=== PATIENT | female | born 1935 | race Caucasian/White ===

== ENCOUNTER 2020-09-04 23:32 | Emergency (ER) | payer MEDICARE, OTHER ==
[2020-09-05] MEDS ORDERED: Sodium Chloride 0.9% 1,000 ML IV ONE (00:52)
--- NOTE | 2020-09-05 01:04 | EDM.PDOC ---
ED HPI GENERAL MEDICAL PROBLEM - General Chief Complaint: Fever Stated Complaint: FEVER, DEHYDRATED, VOMITING, FEELING SINCE TUESDAY Time Seen by Provider: 09/05/20 00:20 Source of Information: Reports: Patient, Family (daughter) History Limitations: Reports: No Limitations - History of Present Illness INITIAL COMMENTS - FREE TEXT/NARRATIVE: This 84 yo female patient was brought to the ED by her daughter due to a 1 week history of increased weakness, fevers and lack of appetite/thirst. The patient was seen in the [facility] on Tuesday (09/03/20). The patient reports she had lab work, a urinalysis and chest x-ray during the clinic visit with no reason for her current feeling. The patient reports she was advised to come to the ED if she was not feeling better. The patient's daughter from [place] came to visit [facility] and encouraged her to come in. The patient reports diffuse abdominal aches, but no areas of specific pain. Duration: Week(s):, Constant, Getting Worse Location: Reports: Generalized Quality: Reports: Other Severity: Moderate Improves with: Reports: None Worsens with: Reports: None Associated Symptoms: Reports: Fever/Chills, Loss of Appetite, Malaise - Related Data Allergies Allergy/AdvReac Type Severity Reaction Status Date / Time adhesive tape Allergy Rash Verified 12/05/17 09:30 levofloxacin [From Levaquin] Allergy Hives Verified 01/29/19 08:57 Sulfa (Sulfonamide Allergy Itching Verified 12/05/17 09:30 Antibiotics) tapentadol Allergy Nausea and Verified 01/29/19 08:57 Vomiting Home Meds: Home Meds atenoloL [Atenolol] 25 mg PO DAILY 12/05/17 [History] Past Medical History HEENT History: Reports: Impaired Vision, Other (See Below) Other HEENT History: WEARS HEARING AIDES Cardiovascular History: Reports: Other (See Below) Other Cardiovascular History: IRREGULAR HR Respiratory History: Reports: None Gastrointestinal History: Reports: None Genitourinary History: Reports: None [employer] History: Reports: Musculoskeletal History: Reports: Back Pain, Chronic, Other (See Below) Other Musculoskeletal History: LOWER BACK DISK ISSUES ON OCCASSION Neurological History: Reports: None Psychiatric History: Reports: None Endocrine/Metabolic History: Reports: None Hematologic History: Reports: None Immunologic History: Reports: None Oncologic (Cancer) History: Reports: None Dermatologic History: Reports: None - Infectious Disease History Infectious Disease History: Reports: Chicken Pox, Measles, Mumps, Shingles - Past Surgical History Head Surgeries/Procedures: Reports: None HEENT Surgical History: Reports: Adenoidectomy, Tonsillectomy, Other (See Below) Other HEENT Surgeries/Procedures: RIGHT EAR SURGERY TO PATCH HOLE IN EARDRUM Cardiovascular Surgical History: Reports: None GI Surgical History: Reports: Colonoscopy Female Surgical History: Reports: D&C Endocrine Surgical History: Reports: None Neurological Surgical History: Reports: None Musculoskeletal Surgical History: Reports: None Social & Family History - Family History Family Medical History: No Pertinent Family History - Tobacco Use Tobacco Use Status *Q: Never Tobacco User - Caffeine Use Caffeine Use: Reports: None ED ROS GENERAL - Review of Systems Review Of Systems: Comprehensive ROS is negative, except as noted in HPI. ED EXAM, GENERAL - Physical Exam Exam: See Below Exam Limited By: No Limitations General Appearance: Alert, WD/WN, Moderate Distress, Thin Eye Exam: Bilateral Eye: EOMI, Normal Inspection, PERRL Ears: Normal External Exam, Normal Canal, Hearing Grossly Normal, Normal TMs Nose: Normal Inspection, Normal Mucosa, No Blood Throat/Mouth: Normal Inspection, Normal Lips, Normal Teeth, Normal Gums, Normal Oropharynx, Normal Voice, No Airway Compromise Head: Atraumatic, Normocephalic Neck: Normal Inspection, Supple, Non-Tender, Full Range of Motion Respiratory/Chest: No Respiratory Distress, Lungs Clear, Normal Breath Sounds, No Accessory Muscle Use, Chest Non-Tender Cardiovascular: Normal Peripheral Pulses, Regular Rate, Rhythm, No Edema, No Gallop, No JVD, No Murmur, No Rub GI/Abdominal: Normal Bowel Sounds, No Organomegaly, No Distention, No Abnormal Bruit, No Mass, Pelvis Stable, Tender (LLQ to paplation) (Female) Exam: Deferred Rectal (Female) Exam: Deferred Back Exam: Normal Inspection, Full Range of Motion, NT Extremities: Normal Inspection, Normal Range of Motion, Non-Tender, Normal Capillary Refill, No Pedal Edema Neurological: Alert, Oriented, CN II-XII Intact, Normal Cognition, Normal Gait, Normal Reflexes, No Motor/Sensory Deficits Psychiatric: Normal Affect, Normal Mood Skin Exam: Warm, Dry, Intact, Normal Color, No Rash Lymphatic: No Adenopathy Course - Vital Signs Last Recorded V/S: Last Vital Signs Temp 98.6 F 09/04/20 23:46 Pulse 74 09/04/20 23:46 Resp 18 09/04/20 23:46 BP 120/66 09/04/20 23:46 Pulse Ox - Orders/Labs/Meds Orders: Active Orders 24 hr Category Date Time Status EKG Documentation Completion [RC] STAT Care 09/05/20 00:49 Active CULTURE URINE [RM] Urgent Lab 09/05/20 02:06 Received LYME DISEASE AB TOTAL IG EIA [REF] Urgent Lab 09/05/20 00:49 Received [facility] [REF] Urgent Lab 09/05/20 00:49 Received Ondansetron [Zofran] Med 09/05/20 03:14 Once 4 mg IVPUSH ONETIME ONE Labs: Laboratory Tests 09/05/20 09/05/20 09/05/20 Range/Units 00:49 00:49 02:06 WBC 8.1 (5.0-10.0) 10^3/uL RBC 4.00 L (4.2-5.4) 10^6/uL Hgb 13.1 (12.0-16.0) g/dL Hct 37.8 (37.0-47.0) % MCV 94.5 (80-100) fL MCH 32.8 (27.0-34.0) pg MCHC 34.7 (33.0-35.0) g/dL Plt Count 196 (150-450) 10^3/uL Neut % (Auto) 77.2 H (42.2-75.2) % Lymph % (Auto) 10.3 L (20.5-50.1) % [place] % (Auto) 11.0 H (2-8) % Eos % (Auto) 1.1 (1.0-3.0) % Baso % (Auto) 0.4 (0.0-1.0) % Sodium 136 (136-145) mmol/L Potassium 3.5 (3.5-5.1) mmol/L Chloride 98 (98-107) mmol/L Carbon Dioxide 26 (21-32) mmol/L Anion Gap 15.5 H (7-13) mEq/L BUN 8 (7-18) mg/dL Creatinine 0.53 L (0.55-1.02) mg/dL Est Cr Clr Drug Dosing TNP Estimated GFR (MDRD) > 60 BUN/Creatinine Ratio 15.1 (No establ ref range) Glucose 113 H (70-99) mg/dL Calcium 8.4 L (8.5-10.1) mg/dL Magnesium 1.8 (1.8-2.4) mg/dL Total Bilirubin 0.3 (0.2-1.0) mg/dL AST 22 (15-37) U/L ALT 23 (14-59) U/L Alkaline Phosphatase 67 (46-116) U/L Troponin I High Sens 6 (<=51) pg/mL Total Protein 6.3 L (6.4-8.2) g/dL Albumin 2.6 L (3.4-5.0) g/dL Globulin 3.7 Albumin/Globulin Ratio 0.70 Urine Color Yellow (YELLOW) Urine Appearance Clear (CLEAR) Urine pH 6.0 (5.0-9.0) Ur Specific [place] 1.010 (1.005-1.030) Urine Protein Negative (NEGATIVE) Urine Glucose (UA) Negative (NEGATIVE) Urine Ketones 15 H (NEGATIVE) Urine Occult Blood Negative (NEGATIVE) Urine Nitrite Negative (NEGATIVE) Urine Bilirubin Negative (NEGATIVE) Urine Urobilinogen 0.2 (0.2-1.0) mg/dL Ur Leukocyte Esterase Trace H (NEGATIVE) Urine RBC 0-5 /HPF Urine WBC 0-5 (0-5/HPF) /HPF Ur Epithelial Cells Rare (NOT SEEN) /HPF Amorphous Sediment Rare (NOT SEEN) /HPF Urine Bacteria Rare (0-FEW/HPF) /HPF Urine Mucus Not seen (NOT SEEN) /LPF Meds: Medications Discontinued Medications Generic Name Dose Route Start Last Admin Trade Name Freq PRN Reason Stop Dose Admin Sodium Chloride 1,000 mls @ 999 mls/hr 09/05/20 00:52 09/05/20 00:55 Normal Saline IV 09/05/20 01:52 999 mls/hr .BOLUS ONE Administration - Re-Assessments/Exams Free Text/Narrative Re-Assessment/Exam: 09/05/20 03:14 The patient reports some additional nausea. The patient was advised of the remainder or her labs. Departure - Departure Time of Disposition: 03:15 Disposition: Home, Self-Care 01 Condition: Fair Clinical Impression: Gastroenteritis, Dehydration - Discharge Information *PRESCRIPTION DRUG MONITORING PROGRAM REVIEWED*: Not Applicable *COPY OF PRESCRIPTION DRUG MONITORING REPORT IN PATIENT [place]: Not Applicable Instructions: Dehydration, Adult, [id number] Forms: ED Department Discharge Care Plan Goals: The patient was advised of the examination and lab results during the visit. The patient was given IV fluids and IV Zofran during the visit. The patient was discharged with a script for Zofran (4 mg) #20 to take 1 by mouth every 6 hours as needed for nausea. The patient was encouraged to attempt to eat healthy meals. The patient will be called with the remaining lab results (West Nile and Lyme Disease) when the results are available. If the patient has any additional symptoms or concerns, the patient should either return to the emergency department or visit her primary care facility. Sepsis Event Note (ED) - Evaluation Sepsis Screening Result: No Definite Risk - Focused Exam Vital Signs: Vital Signs Temp Pulse Resp BP 09/04/20 23:46 98.6 F 74 18 120/66 - My Orders Last 24 Hours: My Active Orders 09/05/20 00:49 EKG Documentation Completion [RC] STAT LYME DISEASE AB TOTAL IG EIA [REF] Urgent [facility] [REF] Urgent 09/05/20 02:06 CULTURE URINE [RM] Urgent 09/05/20 03:14 Ondansetron [Zofran] 4 mg IVPUSH ONETIME ONE - Assessment/Plan Last 24 Hours: My Active Orders 09/05/20 00:49 EKG Documentation Completion [RC] STAT LYME DISEASE AB TOTAL IG EIA [REF] Urgent [facility] [REF] Urgent 09/05/20 02:06 CULTURE URINE [RM] Urgent 09/05/20 03:14 Ondansetron [Zofran] 4 mg IVPUSH ONETIME ONE
[2020-09-05 01:19] LABS: ANION GAP 15.5 mEq/L (7-13); CHLORIDE,CL 98 mmol/L (98-107); SODIUM,NA 136 mmol/L (136-145)
[2020-09-05] MEDS ORDERED: Ondansetron 4 MG/2 ML SDV IVPUSH ONE (03:14)
== END 2020-09-05 03:30 | disposition home or self-care (01) ==
LOC: DL.ED 23:32
DX: K52.9 Noninfective gastroenteritis and colitis, unspecified (principal); E86.0 Dehydration; Z88.1 Allergy status to other antibiotic agents; Z91.048 Other nonmedicinal substance allergy status; Z88.2 Allergy status to sulfonamides; Z88.5 Allergy status to narcotic agent
CPT/HCPCS: 36415; 80053; 81001; 83735; 84484; 85025; 86618; 86788; 87086; 93005; 96374; 99283; 99285; J2405; J7030

== ENCOUNTER 2020-09-06 14:07 | Emergency (ER) | payer MEDICARE, OTHER | END 2020-09-06 14:55 | disposition left against medical advice (07) | LOC: DL.ED 14:07 | DX: Z53.21 Procedure and treatment not carried out due to patient leaving prior to being seen by health care provider (principal) ==

== ENCOUNTER 2022-12-04 04:59 | Emergency (ER) | payer MEDICARE, OTHER | END 2022-12-04 06:49 | disposition home or self-care (01) | LOC: DL.ED 04:59 | DX: I16.0 Hypertensive urgency (principal); Z88.1 Allergy status to other antibiotic agents; Z88.2 Allergy status to sulfonamides; Z88.8 Allergy status to other drugs, medicaments and biological substances; Z91.048 Other nonmedicinal substance allergy status | CPT/HCPCS: 93010; 99284 ==

== ENCOUNTER 2023-06-18 19:55 | Observation (INO) | payer MEDICARE, OTHER ==
[2023-06-18] MEDS: Ibuprofen 600 MG Tab PO ONE (21:03)
[2023-06-18] MEDS: Albuterol/Ipratropium 3.0-0.5 MG/3 ML Neb Soln NEB ONE (21:03)
[2023-06-18 21:05] LABS: BASOPHILS PERCENT AUTO 0.2 % (0.0-1.0); EOSINOPHILS PERCENT AUTO 0.5 % (1.0-3.0); HEMATOCRIT 33.5 % (37.0-47.0); HEMOGLOBIN 11.2 g/dL (12.0-16.0); LYMPHOCYTES PERCENT AUTO 11.5 % (20.5-50.1); MEAN CORPUSCULAR HEMOGLOBIN 31.9 pg (27.0-34.0); MEAN CORPUSCULAR HGB CONC 33.4 g/dL (33.0-35.0); MEAN CORPUSCULAR VOLUME 95.4 fL (80-100); MONOCYTES PERCENT AUTO 7.9 % (2-8); NEUTROPHILS PERCENT AUTO 79.9 % (42.2-75.2); PLATELET COUNT,PLT 235 10^3/uL (150-450); RED BLOOD CELL COUNT 3.51 10^6/uL (4.2-5.4); WHITE BLOOD CELL COUNT,WBC 9.9 10^3/uL (5.0-10.0)
[2023-06-18 21:30] LABS: ALBUMIN 2.7 g/dL (3.4-5.0); ANION GAP 14.1 mEq/L (7-13); BILIRUBIN TOTAL 0.3 mg/dL (0.2-1.0); BUN/CREATININE RATIO 13.2 (No establ ref range); CALCIUM 8.5 mg/dL (8.5-10.1); CREATININE 0.91 mg/dL (0.55-1.02); EST CRCL DRUG DOSING (CG) 40.65 mL/min; LACTIC ACID 0.8 mmol/L (0.4-2.0); MAGNESIUM 1.7 mg/dL (1.8-2.4); POTASSIUM,K 4.1 mmol/L (3.5-5.1); PROTEIN TOTAL,TP 6.8 g/dL (6.4-8.2)
[2023-06-18 21:33] LABS: A/G RATIO 0.66
[2023-06-18 22:01] LABS: APPEARANCE,URINE CLEAR (CLEAR); BILIRUBIN,URINE NEGATIVE (NEGATIVE); COLOR,URINE YELLOW (YELLOW); GLUCOSE,URINE NEGATIVE (NEGATIVE); KETONES,URINE NEGATIVE (NEGATIVE); LEUKOCYTE ESTERASE,URINE NEGATIVE (NEGATIVE); NITRITE,URINE NEGATIVE (NEGATIVE); OCCULT BLOOD,URINE NEGATIVE (NEGATIVE); PH,URINE 7.5 (5.0-9.0); PROTEIN,URINE NEGATIVE (NEGATIVE); UROBILINOGEN,URINE 0.2 mg/dL (0.2-1.0)
[2023-06-18 22:06] LABS: CORONAVIRUS COVID-19 NAA NEGATIVE (NEGATIVE); INFLUENZA A NAA NEGATIVE (NEGATIVE); INFLUENZA B NAA NEGATIVE (NEGATIVE); RESPIRATORY SYNCYTIAL VIR NAA NEGATIVE (NEGATIVE)
[2023-06-18] MEDS: Magnesium Sulfate/Water 2 GM in Premix Bag 1 BAG IV ONE (23:09)
[2023-06-18] MEDS: cefTRIAXone 1 GM Vial IVPUSH ONE (23:09)
[2023-06-18] MEDS: Sodium Chloride 0.9% 1,000 ML IV ONE (23:09)
[2023-06-18] MEDS ORDERED: Docusate Sodium 100 MG Cap PO PRN (23:58)
[2023-06-18] MEDS ORDERED: Acetaminophen/HYDROcodone 325-5 MG Tab PO PRN (23:58)
[2023-06-18] MEDS ORDERED: Acetaminophen 325 MG Tab PO PRN (23:58)
[2023-06-18] MEDS ORDERED: Ondansetron 4 MG/2 ML SDV IVPUSH PRN (23:58)
[2023-06-18] MEDS ORDERED: Bisacodyl 5 MG Tab PO PRN (23:58)
[2023-06-18] MEDS ORDERED: Albuterol/Ipratropium 3.0-0.5 MG/3 ML Neb Soln NEB PRN (23:58)
[2023-06-19] MEDS ORDERED: Melatonin 3 MG Tab PO PRN (00:05)
[2023-06-19] MEDS ORDERED: guaiFENesin/Dextromethorphan 100-10 MG/5 ML Soln 5 ML Cup PO PRN (00:05)
[2023-06-19] MEDS: Azithromycin 500 MG in Sodium Chloride 0.9% 250 ML IV ONE (00:30)
[2023-06-19 06:35] LABS: BASOPHILS PERCENT AUTO 0.2 % (0.0-1.0); EOSINOPHILS PERCENT AUTO 1.4 % (1.0-3.0); HEMATOCRIT 32.6 % (37.0-47.0); HEMOGLOBIN 10.8 g/dL (12.0-16.0); LYMPHOCYTES PERCENT AUTO 17.7 % (20.5-50.1); MEAN CORPUSCULAR HEMOGLOBIN 31.8 pg (27.0-34.0); MEAN CORPUSCULAR HGB CONC 33.1 g/dL (33.0-35.0); MEAN CORPUSCULAR VOLUME 95.9 fL (80-100); MONOCYTES PERCENT AUTO 10.4 % (2-8); NEUTROPHILS PERCENT AUTO 70.3 % (42.2-75.2); PLATELET COUNT,PLT 224 10^3/uL (150-450); WHITE BLOOD CELL COUNT,WBC 8.4 10^3/uL (5.0-10.0)
[2023-06-19 07:34] LABS: ANION GAP 10.2 mEq/L (7-13); CALCIUM 8.1 mg/dL (8.5-10.1); CREATININE 0.68 mg/dL (0.55-1.02); EST CRCL DRUG DOSING (CG) 52.49 mL/min; POTASSIUM,K 4.2 mmol/L (3.5-5.1)
[2023-06-19] MEDS ORDERED: Albuterol 6.7 GM Inhaler INH PRN (08:04)
[2023-06-19] MEDS: Enoxaparin 40 MG/0.4 ML Syringe SUBCUT SCH (08:44)
[2023-06-19] MEDS: Atenolol 25 MG Tab PO SCH (08:44)
[2023-06-19] MEDS ORDERED: cefTRIAXone 1 GM Vial IVPUSH SCH (22:00)
[2023-06-20] MEDS ORDERED: Azithromycin 250 MG Tab PO SCH (07:00)
[2023-06-20] MEDS ORDERED: Azithromycin 250 MG Tab PO ONE (07:00)
== END 2023-06-19 09:41 | disposition home or self-care (01) ==
LOC: DL.ED 19:55 → DL.MS 22:15 → DL.ED 23:39
PROVIDERS: ADMIT Internal Medicine; ATTEND Internal Medicine
DX: J18.9 Pneumonia, unspecified organism (principal); I10 Essential (primary) hypertension; Z79.899 Other long term (current) drug therapy; Z88.2 Allergy status to sulfonamides; Z91.048 Other nonmedicinal substance allergy status
CPT/HCPCS: 0241U; 36415; 71045; 80048; 80053; 81003; 83605; 83735; 84484; 85025; 87040; 93005; 93010; 96365; 96366; 96367; 96375; 99222; 99239; 99284; 99285; A9270; G0378; J0456; J0696; J3475; J7030; J7050; J7620-GY

== ENCOUNTER 2023-10-21 09:10 | Emergency (ER) | payer MEDICARE, OTHER ==
[2023-10-21 09:46] LABS: BASOPHILS PERCENT AUTO 0.2 % (0.0-1.0); HEMOGLOBIN 12.7 g/dL (12.0-16.0); LYMPHOCYTES PERCENT AUTO 13.9 % (20.5-50.1); MEAN CORPUSCULAR HEMOGLOBIN 32.5 pg (27.0-34.0); MEAN CORPUSCULAR HGB CONC 34.3 g/dL (33.0-35.0); MEAN CORPUSCULAR VOLUME 94.6 fL (80-100); MONOCYTES PERCENT AUTO 12.7 % (2-8); NEUTROPHILS PERCENT AUTO 73.2 % (42.2-75.2); PLATELET COUNT,PLT 175 10^3/uL (150-450); RED BLOOD CELL COUNT 3.91 10^6/uL (4.2-5.4); WHITE BLOOD CELL COUNT,WBC 5.8 10^3/uL (5.0-10.0)
[2023-10-21 10:02] LABS: PROTHROMBIN TIME 10.4 SEC (9.0-12.0)
[2023-10-21] MEDS: Sodium Chloride 0.9% 500 ML IV ONE (10:06)
[2023-10-21 10:08] LABS: A/G RATIO 0.79; ANION GAP 12.8 mEq/L (7-13); BILIRUBIN TOTAL 0.4 mg/dL (0.2-1.0); BUN/CREATININE RATIO 13.3 (No establ ref range); CALCIUM 8.7 mg/dL (8.5-10.1); CREATININE 0.75 mg/dL (0.55-1.02); EST CRCL DRUG DOSING (CG) 48.3 mL/min; MAGNESIUM 1.6 mg/dL (1.8-2.4); POTASSIUM,K 3.8 mmol/L (3.5-5.1); PROTEIN TOTAL,TP 6.8 g/dL (6.4-8.2)
[2023-10-21] MEDS: Iopamidol 612 MG/ML 100 ML Bottle IVPUSH ONE (10:36)
[2023-10-21] MEDS: Magnesium Sulfate/Water 2 GM in Premix Bag 1 BAG IV ONE (10:49)
== END 2023-10-21 14:29 | disposition home or self-care (01) ==
LOC: DL.ED 09:10
DX: U07.1 COVID-19 (principal); E83.42 Hypomagnesemia; I10 Essential (primary) hypertension; Z86.16 Personal history of COVID-19; Z88.2 Allergy status to sulfonamides; Z88.1 Allergy status to other antibiotic agents; Z91.048 Other nonmedicinal substance allergy status
CPT/HCPCS: 36415; 71260; 80053; 83690; 83735; 84484; 85025; 85610; 87804; 93005; 93010; 96361; 96365; 96366; 99284; 99284-25; J3475; J7040; Q9967; U0002

== ENCOUNTER 2023-10-24 09:26 | Inpatient (IN) | payer MEDICARE, OTHER ==
[2023-10-24 09:59] LABS: HEMOGLOBIN 15.1 g/dL (12.0-16.0); MEAN CORPUSCULAR HEMOGLOBIN 32.3 pg (27.0-34.0); MEAN CORPUSCULAR HGB CONC 34.3 g/dL (33.0-35.0); MEAN CORPUSCULAR VOLUME 94.2 fL (80-100); PLATELET COUNT,PLT 239 10^3/uL (150-450); RED BLOOD CELL COUNT 4.67 10^6/uL (4.2-5.4); WHITE BLOOD CELL COUNT,WBC 4.2 10^3/uL (5.0-10.0)
[2023-10-24 10:02] LABS: BASOPHILS PERCENT AUTO 0.2 % (0.0-1.0); EOSINOPHILS PERCENT AUTO 0.2 % (1.0-3.0); LYMPHOCYTES PERCENT AUTO 43.9 % (20.5-50.1); MONOCYTES PERCENT AUTO 11.2 % (2-8); NEUTROPHILS PERCENT AUTO 44.5 % (42.2-75.2)
[2023-10-24 10:14] LABS: INR 0.9 (0.9-1.2); PROTHROMBIN TIME 9.7 SEC (9.0-12.0)
[2023-10-24 10:19] LABS: ALANINE AMINOTRANSFERASE,ALT 20 U/L (14-59); ALKALINE PHOSPHATASE 59 U/L (46-116); ANION GAP 13.4 mEq/L (7-13); ASPARTATE AMNIOTRANSFERASE,AST 16 U/L (15-37); BILIRUBIN TOTAL 0.4 mg/dL (0.2-1.0); BLOOD UREA NITROGEN,BUN 5 mg/dL (7-18); CARBON DIOXIDE,CO2 28 mmol/L (21-32); CHLORIDE,CL 102 mmol/L (98-107); GLUCOSE RANDOM 114 mg/dL (70-99); MAGNESIUM 1.7 mg/dL (1.8-2.4); POTASSIUM,K 3.4 mmol/L (3.5-5.1); PROTEIN TOTAL,TP 7.4 g/dL (6.4-8.2); SODIUM,NA 140 mmol/L (136-145)
[2023-10-24 10:22] LABS: A/G RATIO 0.68; BUN/CREATININE RATIO 6.3 (No establ ref range); ESTIMATED GFR 72 mL/min (>=60)
[2023-10-24] MEDS: Sodium Chloride 0.9% 500 ML IV ONE (10:30)
[2023-10-24 10:50] LABS: LYMPHOCYTES % ATYPICAL MANUAL 6 %; LYMPHOCYTES PERCENT MAN 37 % (20-50); MONOCYTES PERCENT MAN 12 % (2-8); SEG NEUTROPHILS PERCENT MAN 45 % (42-75)
[2023-10-24] MEDS: Magnesium Sulfate/Water Premix 2 GM in Premix Bag 1 BAG IV ONE (11:03)
[2023-10-24] MEDS: hydrALAZINE 20 MG/ML SDV IVPUSH ONE (11:14)
[2023-10-24] MEDS ORDERED: Metoprolol Tartrate 5 MG/5 ML SDV IVPUSH PRN (12:50)
[2023-10-24] MEDS ORDERED: hydrALAZINE 20 MG/ML SDV IVPUSH PRN (12:50)
[2023-10-24] MEDS ORDERED: HYDROmorphone 0.5 MG/0.5 ML Syringe IVPUSH PRN (12:51)
[2023-10-24] MEDS ORDERED: Magnesium Hydroxide 400 MG/5 ML Susp 30 ML Cup PO PRN (12:51)
[2023-10-24] MEDS ORDERED: Polyethylene Glycol 3350 Powder 17 GM Packet PO PRN (12:51)
[2023-10-24] MEDS ORDERED: Sennosides/Docusate Sodium 50-8.6 MG Tab PO PRN (12:51)
[2023-10-24] MEDS ORDERED: Naloxone 2 MG/2 ML Syringe IVPUSH PRN (12:51)
[2023-10-24] MEDS ORDERED: Albuterol/Ipratropium 3.0-0.5 MG/3 ML Neb Soln NEB PRN (12:51)
[2023-10-24] MEDS ORDERED: 50% Dextrose in Water 50 ML Syringe IVPUSH PRN (12:54)
[2023-10-24] MEDS ORDERED: Glucagon,Human Recombinant 1 MG Vial IM PRN (12:54)
[2023-10-24] MEDS ORDERED: traMADol 50 MG Tab PO PRN (12:54)
[2023-10-24] MEDS ORDERED: Sodium Chloride 0.9% 100 ML IV PRN (13:21)
[2023-10-24 13:37] LABS: T4 FREE 1.24 ng/dL (0.76-1.46); TSH ULTRASENSITIVE 1.98 uIU/mL (0.36-3.74)
[2023-10-24] MEDS: Potassium Chloride 10 MEQ Tab.ER PO ONE (14:06)
[2023-10-24] MEDS: REMDESIVIR 200 MG in Sodium Chloride 0.9% 250 ML IV ONE (14:06)
[2023-10-24] MEDS: cefTRIAXone 1 GM Vial IVPUSH ONE (14:07)
[2023-10-24] MEDS: Azithromycin 500 MG in Sodium Chloride 0.9% 250 ML IV ONE (16:37)
[2023-10-24] MEDS: Insulin Lispro 100 Units/ML 3 ML Vial SUBCUT SCH (17:46)
[2023-10-25] MEDS: Ondansetron 4 MG/2 ML SDV IVPUSH PRN (00:24)
[2023-10-25] MEDS: Metoclopramide 10 MG/2 ML SDV IV PRN (04:38)
[2023-10-25 06:43] LABS: BASOPHILS PERCENT AUTO 0.4 % (0.0-1.0); EOSINOPHILS PERCENT AUTO 0.4 % (1.0-3.0); HEMATOCRIT 39.1 % (37.0-47.0); HEMOGLOBIN 13.3 g/dL (12.0-16.0); LYMPHOCYTES PERCENT AUTO 43.3 % (20.5-50.1); MEAN CORPUSCULAR HEMOGLOBIN 32.2 pg (27.0-34.0); MEAN CORPUSCULAR VOLUME 94.7 fL (80-100); MONOCYTES PERCENT AUTO 11.2 % (2-8); NEUTROPHILS PERCENT AUTO 44.7 % (42.2-75.2); PLATELET COUNT,PLT 224 10^3/uL (150-450); RED BLOOD CELL COUNT 4.13 10^6/uL (4.2-5.4); WHITE BLOOD CELL COUNT,WBC 5.1 10^3/uL (5.0-10.0)
[2023-10-25 08:03] LABS: ALBUMIN 2.6 g/dL (3.4-5.0); ANION GAP 7.3 mEq/L (7-13); BILIRUBIN DIRECT 0.1 mg/dL (0.0-0.2); BILIRUBIN TOTAL 0.2 mg/dL (0.2-1.0); BUN/CREATININE RATIO 13.4 (No establ ref range); C-REACTIVE PROTEIN 1.71 ng/dL (<=0.50); CALCIUM 8.5 mg/dL (8.5-10.1); CREATININE 0.67 mg/dL (0.55-1.02); EST CRCL DRUG DOSING (CG) 52.31 mL/min; POTASSIUM,K 4.3 mmol/L (3.5-5.1); PROTEIN TOTAL,TP 6.5 g/dL (6.4-8.2)
[2023-10-25 08:08] LABS: A/G RATIO 0.67
[2023-10-25] MEDS: REMDESIVIR 100 MG in Sodium Chloride 0.9% 100 ML IV SCH (10:11)
[2023-10-25] MEDS: Atenolol 25 MG Tab PO SCH (10:11)
[2023-10-25] MEDS: Enoxaparin 40 MG/0.4 ML Syringe SUBCUT SCH (10:13)
[2023-10-25] MEDS: cefTRIAXone 1 GM Vial IVPUSH SCH (10:13)
[2023-10-25] MEDS: Azithromycin 500 MG in Sodium Chloride 0.9% 250 ML IV SCH (12:46)
[2023-10-25] MEDS: Sodium Chloride 0.9% 10 ML Syringe FLUSH PRN (19:44)
[2023-10-25] MEDS: MVI, Adult with Vitamin K 10 ML, Folic Acid 1 MG, Thiamine 100 MG in Lactated Ringers 1... IV ONE (21:34)
[2023-10-26 06:50] LABS: HEMATOCRIT 39.4 % (37.0-47.0); HEMOGLOBIN 13.5 g/dL (12.0-16.0); MEAN CORPUSCULAR HEMOGLOBIN 32.2 pg (27.0-34.0); MEAN CORPUSCULAR HGB CONC 34.3 g/dL (33.0-35.0); PLATELET COUNT,PLT 238 10^3/uL (150-450); RED BLOOD CELL COUNT 4.19 10^6/uL (4.2-5.4)
[2023-10-26 06:54] LABS: LYMPHOCYTES PERCENT AUTO 43.8 % (20.5-50.1); NEUTROPHILS PERCENT AUTO 42.1 % (42.2-75.2)
[2023-10-26 06:55] LABS: BASOPHILS PERCENT AUTO 0.2 % (0.0-1.0); EOSINOPHILS PERCENT AUTO 0.6 % (1.0-3.0); MONOCYTES PERCENT AUTO 13.3 % (2-8)
[2023-10-26 07:02] LABS: ALBUMIN 2.7 g/dL (3.4-5.0); ANION GAP 7.9 mEq/L (7-13); BILIRUBIN DIRECT 0.1 mg/dL (0.0-0.2); BILIRUBIN TOTAL 0.4 mg/dL (0.2-1.0); BUN/CREATININE RATIO 18.2 (No establ ref range); C-REACTIVE PROTEIN 1.32 ng/dL (<=0.50); CREATININE 0.66 mg/dL (0.55-1.02); EST CRCL DRUG DOSING (CG) 53.1 mL/min; MAGNESIUM 1.7 mg/dL (1.8-2.4); POTASSIUM,K 3.9 mmol/L (3.5-5.1); PROTEIN TOTAL,TP 6.6 g/dL (6.4-8.2)
[2023-10-26 07:05] LABS: A/G RATIO 0.69
[2023-10-26 07:27] LABS: EOSINOPHILS PERCENT MAN 1 % (1-3); LYMPHOCYTES % ATYPICAL MANUAL 4 %; LYMPHOCYTES PERCENT MAN 40 % (20-50); MONOCYTES PERCENT MAN 12 % (2-8); SEG NEUTROPHILS PERCENT MAN 43 % (42-75)
[2023-10-26] MEDS: Meclizine 12.5 MG Tab PO PRN (08:55)
[2023-10-26] MEDS: Magnesium Sulfate/Water Premix 2 GM in Premix Bag 1 BAG IV ONE (11:46)
[2023-10-26] MEDS: Melatonin 3 MG Tab PO PRN (22:03)
[2023-10-26] MEDS: Acetaminophen 325 MG Tab PO PRN (22:03)
[2023-10-27 06:35] LABS: BASOPHILS PERCENT AUTO 0.4 % (0.0-1.0); EOSINOPHILS PERCENT AUTO 1.6 % (1.0-3.0); HEMATOCRIT 40.7 % (37.0-47.0); HEMOGLOBIN 13.8 g/dL (12.0-16.0); LYMPHOCYTES PERCENT AUTO 41.3 % (20.5-50.1); MEAN CORPUSCULAR HEMOGLOBIN 31.8 pg (27.0-34.0); MEAN CORPUSCULAR HGB CONC 33.9 g/dL (33.0-35.0); MEAN CORPUSCULAR VOLUME 93.8 fL (80-100); MONOCYTES PERCENT AUTO 12.8 % (2-8); NEUTROPHILS PERCENT AUTO 43.9 % (42.2-75.2); PLATELET COUNT,PLT 255 10^3/uL (150-450); RED BLOOD CELL COUNT 4.34 10^6/uL (4.2-5.4)
[2023-10-27 06:55] LABS: ALBUMIN 2.7 g/dL (3.4-5.0); ANION GAP 10.4 mEq/L (7-13); BILIRUBIN DIRECT 0.1 mg/dL (0.0-0.2); BILIRUBIN TOTAL 0.3 mg/dL (0.2-1.0); BUN/CREATININE RATIO 23.5 (No establ ref range); C-REACTIVE PROTEIN 1.18 ng/dL (<=0.50); CALCIUM 8.9 mg/dL (8.5-10.1); CREATININE 0.68 mg/dL (0.55-1.02); EST CRCL DRUG DOSING (CG) 51.54 mL/min; MAGNESIUM 1.9 mg/dL (1.8-2.4); POTASSIUM,K 4.4 mmol/L (3.5-5.1); PROTEIN TOTAL,TP 6.5 g/dL (6.4-8.2)
[2023-10-27 06:56] LABS: A/G RATIO 0.71
[2023-10-27] MEDS: Dexamethasone 6 MG TABLET PO SCH (10:00)
[2023-10-28 06:45] LABS: HEMATOCRIT 39.2 % (37.0-47.0); HEMOGLOBIN 13.6 g/dL (12.0-16.0); LYMPHOCYTES PERCENT AUTO 24.9 % (20.5-50.1); MEAN CORPUSCULAR HEMOGLOBIN 32.2 pg (27.0-34.0); MEAN CORPUSCULAR HGB CONC 34.7 g/dL (33.0-35.0); MEAN CORPUSCULAR VOLUME 92.7 fL (80-100); MONOCYTES PERCENT AUTO 8.8 % (2-8); NEUTROPHILS PERCENT AUTO 66.3 % (42.2-75.2); PLATELET COUNT,PLT 296 10^3/uL (150-450); RED BLOOD CELL COUNT 4.23 10^6/uL (4.2-5.4); WHITE BLOOD CELL COUNT,WBC 7.3 10^3/uL (5.0-10.0)
[2023-10-28 07:09] LABS: ALBUMIN 2.8 g/dL (3.4-5.0); ANION GAP 11.2 mEq/L (7-13); BILIRUBIN DIRECT 0.1 mg/dL (0.0-0.2); BILIRUBIN TOTAL 0.3 mg/dL (0.2-1.0); C-REACTIVE PROTEIN 1.06 ng/dL (<=0.50); CALCIUM 9.3 mg/dL (8.5-10.1); CREATININE 0.63 mg/dL (0.55-1.02); EST CRCL DRUG DOSING (CG) 55.63 mL/min; MAGNESIUM 1.9 mg/dL (1.8-2.4); POTASSIUM,K 4.2 mmol/L (3.5-5.1); PROTEIN TOTAL,TP 6.7 g/dL (6.4-8.2)
[2023-10-28 07:12] LABS: A/G RATIO 0.72
== END 2023-10-28 13:09 | disposition home or self-care (01) | DRG 177 ==
LOC: DL.ED 09:26 → DL.MS 11:12 → OBSVTOIN 10-25 15:35
PROVIDERS: ADMIT Internal Medicine; ATTEND Internal Medicine
PROC: XW033E5 Introduction of Remdesivir Anti-infective into Peripheral Vein, Percutaneous Approach, New Technology Group 5 (ICD-10-PCS; principal; 2023-10-24)
DX: U07.1 COVID-19 (principal); R42 Dizziness and giddiness; I47.10 Supraventricular tachycardia, unspecified; J18.9 Pneumonia, unspecified organism; Z68.1 Body mass index [BMI] 19.9 or less, adult; I10 Essential (primary) hypertension; E78.5 Hyperlipidemia, unspecified; I25.2 Old myocardial infarction; Z91.048 Other nonmedicinal substance allergy status; Z88.8 Allergy status to other drugs, medicaments and biological substances; Z66 Do not resuscitate; M81.0 Age-related osteoporosis without current pathological fracture; M19.90 Unspecified osteoarthritis, unspecified site; E86.0 Dehydration; I49.9 Cardiac arrhythmia, unspecified; G89.29 Other chronic pain; M54.9 Dorsalgia, unspecified; H54.7 Unspecified visual loss; E87.6 Hypokalemia; D72.819 Decreased white blood cell count, unspecified; R73.9 Hyperglycemia, unspecified; E83.42 Hypomagnesemia; E88.09 Other disorders of plasma-protein metabolism, not elsewhere classified; I95.1 Orthostatic hypotension; Z88.2 Allergy status to sulfonamides; Z88.1 Allergy status to other antibiotic agents; Z98.49 Cataract extraction status, unspecified eye; Z86.16 Personal history of COVID-19; Z90.89 Acquired absence of other organs; Z79.899 Other long term (current) drug therapy
CPT/HCPCS: 36415; 71046; 80053; 82248; 82306; 82947; 83605; 83735; 83880; 84439; 84443; 84484; 85025; 85610; 86140; 93005; 93010; 96361; 96365; 96367; 96372; 96375; 96376; 97161-GP; 97165-GO; 97530-GO; 97530-GP; 99223; 99232; 99238; 99285; 99285-25; A9270-GY; G0378; J0248; J0360; J0456; J0696; J1650; J1815-GY; J2405; J2765; J3411; J3475; J3490; J7040; J7050; J7120; J8540